=== PATIENT | female | born 1990 | race Caucasian/White ===

== ENCOUNTER 2017-12-15 22:49 | Emergency (ER) | payer MEDICAID ==
[~2017-12-15] VITALS: Ht 162.6 cm; Wt 77.1 kg
[2017-12-15 22:57] VITALS: BP 122/79
[2017-12-15] MEDS ORDERED: LACTULOSE 20 GM/30 ML UDC PO ONE (23:25)
[2017-12-15] MEDS ORDERED: LACTULOSE 20 GM/30 ML UDC ONE ×2 (23:36→23:46)
[2017-12-15 23:50] VITALS: BP 122/79
== END 2017-12-15 23:55 | disposition home or self-care (01) ==
LOC: MED 22:49
DX: K59.00 Constipation, unspecified (principal)
CPT/HCPCS: 99282